=== PATIENT | male | born 1975 | race Caucasian/White ===

== ENCOUNTER 2016-08-31 18:38 | Emergency (ER) | payer OTHER ==
[2016-09-01] MEDS ORDERED: TDaP 0.5 ML VIAL IM.VACC ONE (00:13)
== END 2016-08-31 21:43 | disposition home or self-care (01) ==
LOC: ER 18:38
DX: S61.012A Laceration without foreign body of left thumb without damage to nail, initial encounter (principal); W45.8XXA Other foreign body or object entering through skin, initial encounter; W29.8XXA Contact with other powered hand tools and household machinery, initial encounter; W22.8XXA Striking against or struck by other objects, initial encounter; Z23 Encounter for immunization
CPT/HCPCS: 96372

== ENCOUNTER 2016-09-03 19:02 | Emergency (ER) | payer OTHER ==
[2016-09-03] MEDS ORDERED: ONDANSETRON 4 MG VIAL ONE (22:42)
[2016-09-03] MEDS ORDERED: CHLORDIAZEPOXIDE 25 MG CAP ONE (22:42)
[2016-09-03] MEDS ORDERED: MULTIVITS ADULT INJ 10 ML, THIAMINE 100 MG, FOLIC ACID INJ 1 MG in SODIUM CHLORIDE 0.9%... IV ONE ×3 (22:45)
== END 2016-09-03 23:39 | disposition home or self-care (01) ==
LOC: ER 19:02
DX: F10.20 Alcohol dependence, uncomplicated (principal); F10.239 Alcohol dependence with withdrawal, unspecified; F10.229 Alcohol dependence with intoxication, unspecified
CPT/HCPCS: 36415; 80053; 81001; 84439; 84443; 85025; 85610; 96365; 96375; 99283; G0479; G0480; J2405; 80307; 80320; 80329